=== PATIENT | female | born 1960 | race Caucasian/White ===

== ENCOUNTER 2021-05-23 06:49 | Inpatient (IN) | payer MEDICAID ==
[~2021-05-23] VITALS: Ht 157.5 cm; Wt 60.0 kg
[2021-05-23] MEDS ORDERED: MORPHINE SULFATE 10 MG/ML CPJ IM ONE (07:30)
[2021-05-23 08:11] LABS: HEMATOCRIT. 24.5 % (36.0-48.0); HEMOGLOBIN. 7.4 g/dL (12.0-16.0); MEAN CORPUSCULAR HEMOGLOBIN 26.4 pg (28.0-32.0); MEAN CORPUSCULAR VOLUME 87.2 fL (81.0-99.0); MEAN PLATELET VOLUME 9.3 fl (7.4-10.4); PLATELET 269 x1000/uL (130-400); RED BLOOD CELL COUNT 2.81 mill/uL (4.2-5.4); RED CELL DISTRIBUTION WIDTH 23.2 % (11.6-14.6)
[2021-05-23 08:14] LABS: CHLORIDE 114 mEq/L (98-107)
[2021-05-23 09:26] LABS: PLATELET ESTIMATE NORMAL
[2021-05-23 18:45] VITALS: BP 130/54
[2021-05-23 20:00] VITALS: BP 148/58
[2021-05-23] MEDS ORDERED: ONDANSETRON HCL 4MG/2ML INJ IV PRN (20:45)
[2021-05-23] MEDS ORDERED: IPRATROPIUM/ALBUTEROL 0.5-3(2.5)MG/3ML NEB HHN PRN (21:15)
[2021-05-23] MEDS ORDERED: MAGNESIUM/ALUMINUM HYDROXIDE/SIMETHICONE 30ML UDC PO PRN (21:15)
[2021-05-23] MEDS ORDERED: CLONIDINE 0.1MG TABLET PO PRN (21:15)
[2021-05-23] MEDS ORDERED: NALOXONE HCL 0.4MG/ML VIAL IV PRN (22:00)
[2021-05-24] VITALS (9 sets, daily range): BP systolic 118–155; BP diastolic 42–66
[2021-05-24] MEDS ORDERED: URSO300C4 PO (00:50)
[2021-05-24] MEDS ORDERED: AMLO10TA80 PO (00:50)
[2021-05-24] MEDS ORDERED: ASPI-1497 PO (00:52)
[2021-05-24] MEDS ORDERED: PRED-276 PO (01:39)
[2021-05-24] MEDS ORDERED: PANT40TA51 PO (01:39)
[2021-05-24] MEDS ORDERED: NALT50TA PO (01:39)
[2021-05-24] MEDS ORDERED: ERGO500013 PO (01:39)
[2021-05-24] MEDS ORDERED: TORS10TA17 PO (01:39)
[2021-05-24] MEDS ORDERED: MYCO500T PO (01:39)
[2021-05-24] MEDS ORDERED: FLUT9.9S16 NS (01:39)
[2021-05-24] MEDS ORDERED: HYDR200T35 PO (01:39)
[2021-05-24] MEDS ORDERED: HYDR-459 PO (01:39)
[2021-05-24] MEDS ORDERED: TACR1CAP22 PO (01:39)
[2021-05-24] MEDS: HYDROCODONE/ACETAMINOPHEN 5/325MG TABLET PO PRN ×2 (03:50→16:24)
[2021-05-24 04:57] LABS: CLARITY URINE CLEAR (CLEAR); COLOR URINE DARK YELLOW (YELLOW); KETONES URINE TRACE (NEGATIVE); LEUKOCYTE ESTERASE URINE NEGATIVE (NEGATIVE); NITRITE URINE NEGATIVE (NEGATIVE); OCCULT BLOOD URINE NEGATIVE (NEGATIVE); PH URINE 6.5 (4.5-8.0); PROTEIN URINE TRACE (NEGATIVE); SPECIFIC GRAVITY URINE 1.015 (1.005-1.030)
[2021-05-24 05:09] LABS: *AMPHETAMINES SCREEN URINE NEGATIVE (NEGATIVE); *BARBITURATES SCREEN URINE NEGATIVE (NEGATIVE)
[2021-05-24 05:10] LABS: *BENZODIAZEPINES SCREEN URINE NEGATIVE (NEGATIVE); *COCAINE SCREEN URINE NEGATIVE (NEGATIVE); CANNABINOID URINE SCREEN NEGATIVE (NEGATIVE); METHADONE URINE SCREEN NEGATIVE (NEGATIVE); OPIATES URINE SCREEN PRESUMTIVE POSITIVE (NEGATIVE); PHENCYCLIDINE URINE SCREEN NEGATIVE (NEGATIVE)
[2021-05-24 07:22] LABS: MEAN CORPUSCULAR HEMOGLOBIN 26.7 pg (28.0-32.0); MEAN CORPUSCULAR VOLUME 88.1 fL (81.0-99.0); MEAN PLATELET VOLUME 9.4 fl (7.4-10.4); PLATELET 277 x1000/uL (130-400); RED BLOOD CELL COUNT 2.35 mill/uL (4.2-5.4); RED CELL DISTRIBUTION WIDTH 23.2 % (11.6-14.6)
[2021-05-24 07:47] LABS: HEMOGLOBIN. 6.3 g/dL (12.0-16.0)
[2021-05-24 07:48] LABS: HEMATOCRIT. 20.7 % (36.0-48.0)
[2021-05-24] MEDS ORDERED: PNEUMOCOCCAL 23-VAL P-SAC VAC 0.5 ML IM ONE (08:00)
[2021-05-24 08:18] LABS: CHLORIDE 116 mEq/L (98-107)
[2021-05-24 08:26] LABS: PHOSPHORUS 3.4 mg/dL (2.5-4.9)
[2021-05-24] MEDS ORDERED: PANTOPRAZOLE SODIUM 40 MG/VIAL IV SCH (09:00)
[2021-05-24 09:31] LABS: TOTAL IRON BINDING CAPACITY 256 ug/dL (250-450)
[2021-05-24 09:32] LABS: LDL CHOLESTEROL 214 mg/dL (5-100)
[2021-05-24 09:33] LABS: HDL CHOLESTEROL 9 mg/dL (40-59)
[2021-05-24 09:34] LABS: T4 FREE 1.14 ng/dL (0.76-1.46)
[2021-05-24] MEDS ORDERED: MORPHINE SULFATE 2 MG/ML CPJ (NOT FOR IM USE) IV NR (10:15)
[2021-05-24 13:29] LABS: INR 1.1; PROTHROMBIN TIME 11.3 sec (9.6-11.0)
[2021-05-24] MEDS: FLUTICASONE PROPIONATE 50MCG/SPRAY BOTTLE BOTHNSTRLS SCH (16:18)
[2021-05-24] MEDS ORDERED: TACROLIMUS 1 MG PO SCH (17:00)
[2021-05-24] MEDS: MYCOPHENOLATE MOFETIL 500MG TABLET PO SCH (17:44)
[2021-05-24] MEDS: URSODIOL 300MG CAPSULE PO SCH (17:44)
[2021-05-24] MEDS: TACROLIMUS 1MG CAPSULE PO SCH (17:44)
[2021-05-24] MEDS: DOCUSATE SODIUM 100MG CAPSULE PO PRN (17:44)
[2021-05-24] MEDS ORDERED: DIPHENHYDRAMINE 25MG CAPSULE PO PRN (19:15)
[2021-05-24 20:41] LABS: HEPATITIS B SURFACE ANTIGEN NEGATIVE
[2021-05-24 21:10] LABS: HEPATITIS A AB IGM NEGATIVE (NEGATIVE)
[2021-05-25] VITALS (13 sets, daily range): BP systolic 95–144; BP diastolic 52–85
[2021-05-25 02:19] LABS: HEMATOCRIT 24.2 % (36.0-48.0); HEMOGLOBIN 7.5 g/dL (12.0-16.0)
[2021-05-25] MEDS: MYCOPHENOLATE MOFETIL 500MG TABLET PO SCH ×2 (06:13→17:57)
[2021-05-25 08:13] LABS: CHLORIDE 117 mEq/L (98-107)
[2021-05-25 08:16] LABS: HEMATOCRIT. 27.7 % (36.0-48.0); MEAN CORPUSCULAR VOLUME 86.6 fL (81.0-99.0); MEAN PLATELET VOLUME 9.3 fl (7.4-10.4); PLATELET 264 x1000/uL (130-400); RED BLOOD CELL COUNT 3.19 mill/uL (4.2-5.4); RED CELL DISTRIBUTION WIDTH 19.9 % (11.6-14.6)
[2021-05-25] MEDS ORDERED: PREDNISOLONE 5 MG PO SCH (09:00)
[2021-05-25] MEDS ORDERED: ASPIRIN 81MG EC TABLET PO SCH (09:00)
[2021-05-25] MEDS ORDERED: FLUTICASONE FUROATE 50 MCG NS SCH (09:00)
[2021-05-25] MEDS ORDERED: TORSEMIDE 10MG TABLET PO SCH (09:00)
[2021-05-25] MEDS: PREDNISONE 5MG TABLET PO SCH (09:58)
[2021-05-25] MEDS: BUMETANIDE 1MG TABLET PO SCH (09:58)
[2021-05-25] MEDS: NALTREXONE HCL 50MG TABLET PO SCH (09:58)
[2021-05-25] MEDS: PANTOPRAZOLE 40MG DR TABLET PO SCH (09:59)
[2021-05-25] MEDS: TACROLIMUS 1MG CAPSULE PO SCH ×2 (09:59→17:57)
[2021-05-25] MEDS: URSODIOL 300MG CAPSULE PO SCH ×2 (09:59→17:57)
[2021-05-25] MEDS: AMLODIPINE 10MG TABLET PO SCH (09:59)
[2021-05-25] MEDS: HYDROXYCHLOROQUINE SULFATE 200MG TABLET PO SCH (10:00)
[2021-05-25 11:20] LABS: PLATELET ESTIMATE NORMAL
[2021-05-25] MEDS ORDERED: MORPHINE SULFATE 2 MG/ML CPJ (NOT FOR IM USE) IV ONE (11:45)
[2021-05-25 12:44] LABS: HEMOGLOBIN 9.2 g/dL (12.0-16.0)
[2021-05-25 14:24] LABS: PLATELET ESTIMATE NORMAL
[2021-05-25] MEDS: FLUTICASONE PROPIONATE 50MCG/SPRAY BOTTLE BOTHNSTRLS SCH (17:56)
[2021-05-25] MEDS: HYDROCODONE/ACETAMINOPHEN 10/325MG TABLET PO PRN (17:57)
[2021-05-25 20:20] LABS: HEMATOCRIT 27.2 % (36.0-48.0); HEMOGLOBIN 9.1 g/dL (12.0-16.0)
[2021-05-26 00:40] LABS: HEMATOCRIT 28.1 % (36.0-48.0); HEMOGLOBIN 9.3 g/dL (12.0-16.0)
[2021-05-26 04:00] VITALS: BP 128/58
[2021-05-26] MEDS: MYCOPHENOLATE MOFETIL 500MG TABLET PO SCH ×2 (05:34→17:55)
[2021-05-26] MEDS: DOCUSATE SODIUM 100MG CAPSULE PO PRN (05:37)
[2021-05-26 05:57] LABS: HEMOGLOBIN 9.3 g/dL (12.0-16.0)
[2021-05-26 08:00] VITALS: BP 137/68
[2021-05-26] MEDS: URSODIOL 300MG CAPSULE PO SCH ×2 (09:21→17:55)
[2021-05-26] MEDS: BUMETANIDE 1MG TABLET PO SCH (09:22)
[2021-05-26] MEDS: HYDROCODONE/ACETAMINOPHEN 10/325MG TABLET PO PRN (09:22)
[2021-05-26] MEDS: HYDROXYCHLOROQUINE SULFATE 200MG TABLET PO SCH (09:29)
[2021-05-26] MEDS: AMLODIPINE 10MG TABLET PO SCH (09:29)
[2021-05-26] MEDS: TACROLIMUS 1MG CAPSULE PO SCH ×2 (09:29→17:55)
[2021-05-26] MEDS: PANTOPRAZOLE 40MG DR TABLET PO SCH (09:29)
[2021-05-26] MEDS: PREDNISONE 5MG TABLET PO SCH (09:29)
[2021-05-26] MEDS: NALTREXONE HCL 50MG TABLET PO SCH (09:29)
[2021-05-26 12:00] VITALS: BP 122/58
[2021-05-26] MEDS: FLUTICASONE PROPIONATE 50MCG/SPRAY BOTTLE BOTHNSTRLS SCH (15:31)
[2021-05-26 16:00] VITALS: BP 119/59
[2021-05-26 20:00] VITALS: BP 119/51
[2021-05-27] MEDS: HYDROCODONE/ACETAMINOPHEN 10/325MG TABLET PO PRN ×4 (05:19→22:20)
[2021-05-27] MEDS: MYCOPHENOLATE MOFETIL 500MG TABLET PO SCH ×2 (05:23→18:22)
[2021-05-27 08:00] VITALS: BP 120/62
[2021-05-27] MEDS: AMLODIPINE 10MG TABLET PO SCH (09:12)
[2021-05-27] MEDS: NALTREXONE HCL 50MG TABLET PO SCH (09:12)
[2021-05-27] MEDS: HYDROXYCHLOROQUINE SULFATE 200MG TABLET PO SCH (09:13)
[2021-05-27] MEDS: HYDROXYZINE 25MG TABLET PO PRN (09:13)
[2021-05-27] MEDS: TACROLIMUS 1MG CAPSULE PO SCH ×2 (09:13→18:22)
[2021-05-27] MEDS: PANTOPRAZOLE 40MG DR TABLET PO SCH (09:13)
[2021-05-27] MEDS: PREDNISONE 5MG TABLET PO SCH (09:13)
[2021-05-27] MEDS: BUMETANIDE 1MG TABLET PO SCH (09:14)
[2021-05-27] MEDS: URSODIOL 300MG CAPSULE PO SCH ×2 (09:21→16:44)
[2021-05-27 12:00] VITALS: BP 131/60
[2021-05-27] MEDS: FLUTICASONE PROPIONATE 50MCG/SPRAY BOTTLE BOTHNSTRLS SCH (14:11)
[2021-05-27 20:00] VITALS: BP 113/54
[2021-05-28] VITALS: BP 106/52
[2021-05-28] MEDS: GUAIFENESIN 200MG/10ML SUGAR FREE UDC PO PRN ×3 (01:53→23:07)
[2021-05-28 04:00] VITALS: BP 119/60
[2021-05-28] MEDS: HYDROXYZINE 25MG TABLET PO PRN ×2 (04:48→09:39)
[2021-05-28] MEDS: MYCOPHENOLATE MOFETIL 500MG TABLET PO SCH ×2 (06:30→17:55)
[2021-05-28] MEDS: PANTOPRAZOLE 40MG DR TABLET PO SCH (06:30)
[2021-05-28 08:00] VITALS: BP 119/50
[2021-05-28] MEDS: ACETAMINOPHEN 325MG TABLET PO PRN ×2 (09:35→17:54)
[2021-05-28] MEDS: URSODIOL 300MG CAPSULE PO SCH ×2 (09:36→17:54)
[2021-05-28] MEDS: PREDNISONE 5MG TABLET PO SCH (09:39)
[2021-05-28] MEDS: BUMETANIDE 1MG TABLET PO SCH (09:39)
[2021-05-28] MEDS: NALTREXONE HCL 50MG TABLET PO SCH (09:39)
[2021-05-28] MEDS: HYDROXYCHLOROQUINE SULFATE 200MG TABLET PO SCH (09:39)
[2021-05-28] MEDS: TACROLIMUS 1MG CAPSULE PO SCH ×2 (09:39→17:54)
[2021-05-28] MEDS: AMLODIPINE 10MG TABLET PO SCH (09:39)
[2021-05-28 12:00] VITALS: BP 104/58
[2021-05-28 16:00] VITALS: BP 106/48
[2021-05-28 16:55] LABS: CHLORIDE 107 mEq/L (98-107)
[2021-05-28 16:58] LABS: HEMATOCRIT. 29.1 % (36.0-48.0); HEMOGLOBIN. 9.3 g/dL (12.0-16.0); MEAN CORPUSCULAR HEMOGLOBIN 27.6 pg (28.0-32.0); MEAN CORPUSCULAR VOLUME 86.2 fL (81.0-99.0); MEAN PLATELET VOLUME 9.2 fl (7.4-10.4); PLATELET 284 x1000/uL (130-400); RED BLOOD CELL COUNT 3.37 mill/uL (4.2-5.4); RED CELL DISTRIBUTION WIDTH 21.1 % (11.6-14.6)
[2021-05-28 17:45] LABS: PLATELET ESTIMATE NORMAL
[2021-05-28] MEDS ORDERED: POTASSIUM CHLORIDE 20MEQ TABLET SR PO NR (17:45)
[2021-05-28 20:00] VITALS: BP 110/58
[2021-05-28] MEDS: HYDROCODONE/ACETAMINOPHEN 10/325MG TABLET PO PRN (23:07)
[2021-05-29] VITALS: BP 103/53
[2021-05-29 04:00] VITALS: BP 100/52
[2021-05-29] MEDS: MYCOPHENOLATE MOFETIL 500MG TABLET PO SCH ×2 (06:26→18:41)
[2021-05-29] MEDS: PANTOPRAZOLE 40MG DR TABLET PO SCH (06:26)
[2021-05-29] MEDS: HYDROXYZINE 25MG TABLET PO PRN ×2 (06:26→13:51)
[2021-05-29 08:00] VITALS: BP 110/58
[2021-05-29] MEDS: AMLODIPINE 10MG TABLET PO SCH (09:00)
[2021-05-29] MEDS: URSODIOL 300MG CAPSULE PO SCH ×2 (09:24→18:41)
[2021-05-29] MEDS: PREDNISONE 5MG TABLET PO SCH (09:24)
[2021-05-29] MEDS: HYDROXYCHLOROQUINE SULFATE 200MG TABLET PO SCH (09:24)
[2021-05-29] MEDS: NALTREXONE HCL 50MG TABLET PO SCH (09:24)
[2021-05-29] MEDS: BUMETANIDE 1MG TABLET PO SCH (09:24)
[2021-05-29] MEDS: TACROLIMUS 1MG CAPSULE PO SCH ×2 (09:24→18:41)
[2021-05-29 12:00] VITALS: BP 115/54
[2021-05-29 16:00] VITALS: BP 138/57
[2021-05-29 20:00] VITALS: BP 123/64
[2021-05-30] VITALS: BP 102/68
[2021-05-30 04:00] VITALS: BP 108/54
[2021-05-30] MEDS: PANTOPRAZOLE 40MG DR TABLET PO SCH (06:21)
[2021-05-30] MEDS: MYCOPHENOLATE MOFETIL 500MG TABLET PO SCH ×2 (06:21→17:51)
[2021-05-30] MEDS: HYDROCODONE/ACETAMINOPHEN 10/325MG TABLET PO PRN (06:58)
[2021-05-30 08:00] VITALS: BP 138/64
[2021-05-30] MEDS: TACROLIMUS 1MG CAPSULE PO SCH ×2 (10:34→17:51)
[2021-05-30] MEDS: AMLODIPINE 10MG TABLET PO SCH (10:35)
[2021-05-30] MEDS: URSODIOL 300MG CAPSULE PO SCH ×2 (10:35→17:51)
[2021-05-30] MEDS: HYDROXYCHLOROQUINE SULFATE 200MG TABLET PO SCH (10:35)
[2021-05-30] MEDS: PREDNISONE 5MG TABLET PO SCH (10:36)
[2021-05-30] MEDS: NALTREXONE HCL 50MG TABLET PO SCH (10:36)
[2021-05-30] MEDS: BUMETANIDE 1MG TABLET PO SCH (10:36)
[2021-05-30 16:00] VITALS: BP 105/51
[2021-05-30] MEDS ORDERED: PRED5TAB PO (16:27)
[2021-05-30] MEDS ORDERED: TACR1CAP2 PO (16:27)
[2021-05-30] MEDS ORDERED: CELL5 MT (16:27)
[2021-05-30 20:00] VITALS: BP 111/50
[2021-05-31 00:50] VITALS: BP 128/56
[2021-05-31 04:44] VITALS: BP 141/64
[2021-05-31] MEDS: PANTOPRAZOLE 40MG DR TABLET PO SCH (06:39)
[2021-05-31] MEDS: MYCOPHENOLATE MOFETIL 500MG TABLET PO SCH ×2 (06:39→17:09)
[2021-05-31 08:00] VITALS: BP 124/57
[2021-05-31] MEDS: TACROLIMUS 1MG CAPSULE PO SCH ×2 (09:10→17:09)
[2021-05-31] MEDS: HYDROXYCHLOROQUINE SULFATE 200MG TABLET PO SCH (09:10)
[2021-05-31] MEDS: AMLODIPINE 10MG TABLET PO SCH (09:11)
[2021-05-31] MEDS: BUMETANIDE 1MG TABLET PO SCH (09:11)
[2021-05-31] MEDS: PREDNISONE 5MG TABLET PO SCH (09:11)
[2021-05-31] MEDS: URSODIOL 300MG CAPSULE PO SCH ×2 (09:11→17:09)
[2021-05-31 12:00] VITALS: BP 116/59
[2021-05-31 16:00] VITALS: BP 112/56
[2021-05-31 20:00] VITALS: BP 126/62
[2021-06-01] VITALS: BP 126/59
[2021-06-01] MEDS: GUAIFENESIN 200MG/10ML SUGAR FREE UDC PO PRN (03:48)
[2021-06-01 04:00] VITALS: BP 130/56
[2021-06-01] MEDS: MYCOPHENOLATE MOFETIL 500MG TABLET PO SCH ×2 (06:01→18:19)
[2021-06-01] MEDS: ACETAMINOPHEN 325MG TABLET PO PRN ×2 (06:06→12:51)
[2021-06-01 08:00] VITALS: BP 124/86
[2021-06-01] MEDS: TACROLIMUS 1MG CAPSULE PO SCH ×2 (08:49→18:19)
[2021-06-01] MEDS: PANTOPRAZOLE 40MG DR TABLET PO SCH (08:49)
[2021-06-01] MEDS: BUMETANIDE 1MG TABLET PO SCH (08:49)
[2021-06-01] MEDS: URSODIOL 300MG CAPSULE PO SCH ×2 (08:49→18:19)
[2021-06-01] MEDS: PREDNISONE 5MG TABLET PO SCH (08:49)
[2021-06-01] MEDS: HYDROXYCHLOROQUINE SULFATE 200MG TABLET PO SCH (08:49)
[2021-06-01] MEDS: AMLODIPINE 10MG TABLET PO SCH (08:50)
[2021-06-01 12:00] VITALS: BP 118/58
[2021-06-01 16:00] VITALS: BP 121/57
[2021-06-01 18:32] VITALS: BP 118/58
== END 2021-06-01 19:20 | disposition home or self-care (01) | DRG 52 ==
LOC: ER 07:36 → MICUSO 10:37 → 6EST 17:11
PROVIDERS: ADMIT Internal Medicine; ATTEND Internal Medicine
PROC: 4A10X4Z Monitoring of Central Nervous Electrical Activity, External Approach (ICD-10-PCS; principal; 2021-05-24)
PROC: 30233N1 Transfusion of Nonautologous Red Blood Cells into Peripheral Vein, Percutaneous Approach (ICD-10-PCS; 2021-05-24)
DX: G93.41 Metabolic encephalopathy (principal); E44.0 Moderate protein-calorie malnutrition; E87.8 Other disorders of electrolyte and fluid balance, not elsewhere classified; M41.82 Other forms of scoliosis, cervical region; M84.421A Pathological fracture, right humerus, initial encounter for fracture; M48.02 Spinal stenosis, cervical region; G95.29 Other cord compression; Z94.4 Liver transplant status; D64.9 Anemia, unspecified; E78.5 Hyperlipidemia, unspecified; N18.9 Chronic kidney disease, unspecified; I12.9 Hypertensive chronic kidney disease with stage 1 through stage 4 chronic kidney disease, or unspecified chronic kidney disease; Y83.0 Surgical operation with transplant of whole organ as the cause of abnormal reaction of the patient, or of later complication, without mention of misadventure at the time of the procedure; M43.6 Torticollis; M47.892 Other spondylosis, cervical region; Z20.822 Contact with and (suspected) exposure to COVID-19; M25.511 Pain in right shoulder; W18.39XA Other fall on same level, initial encounter; Y93.89 Activity, other specified; Y92.89 Other specified places as the place of occurrence of the external cause; Y99.8 Other external cause status; Z90.49 Acquired absence of other specified parts of digestive tract; Z79.899 Other long term (current) drug therapy; Z79.82 Long term (current) use of aspirin; Z68.24 Body mass index [BMI] 24.0-24.9, adult; R74.01 Elevation of levels of liver transaminase levels
CPT/HCPCS: 36415; 70551; 71045; 72141; 73030; 73502; 76700; 80048; 80053; 80061; 80076; 80305; 81003; 82140; 82270; 83540; 83550; 83735; 84100; 84439; 84443; 84484; 85014; 85018; 85025; 86705; 86709; 86803; 86850; 86900; 86920; 87340; 87426; 92610; 93005; 93970; 95816; 97162; 97530; 99285; C9113; J2270; J7507; J7512; J7517; L3670; P9016; Q0163